=== PATIENT | female | born 1990 | race Caucasian/White ===

== ENCOUNTER 2018-05-14 19:18 | Emergency (ER) | payer MEDICAID ==
[2018-05-14 19:32] VITALS: BP 123/90
[2018-05-14] MEDS ORDERED: PHENERGAN PO ONE (19:51)
[2018-05-14 21:16] LABS: Bacteria,Urine 1+ /HPF (Negative); Bilirubin,Urine NEG (Negative); Blood,Urine SM (Negative); Color,Urine Amber (Yellow); Mucus,Urine 3+ /HPF
[2018-05-14 21:41] LABS: Hematocrit 39.8 % (30.3-42.9); Hemoglobin 13.6 gm/dl (10.1-14.3); Mean Corpuscular HGB Conc 34 % (30-34); Mean Corpuscular Hemoglobin 28 pg (28-32); Mean Corpuscular Volume 83 fl (79-97); Platelet Count 187 K/mm3 (140-440); Red Blood Count 4.79 M/mm3 (3.65-5.03); Red Cell Distribution Width 13.9 % (13.2-15.2)
[2018-05-14 21:48] LABS: BUN/Creatinine Ratio 15; Blood Urea Nitrogen 6 mg/dL (7-17); Calcium 9.5 mg/dL (8.4-10.2); Hemolysis Index 0
--- NOTE | 2018-05-14 22:42 | Emergency Department Report ---
ED N/V/D HPI - General Chief complaint: Nausea/Vomiting/Diarrhea Stated complaint: VOMITING 8 WEEKS PREG Time Seen by Provider: 05/14/18 22:42 Source: patient Mode of arrival: Ambulatory Limitations: No Limitations - Related Data Home Medications Medication Instructions Recorded Confirmed Last Taken Doxylamine Succinate/Vit B6 1 each PO DAILY PRN 18 05/14/18 Unknown [Bonjesta ER 20-20 mg Tablet] Previous Rx's Medication Instructions Recorded Last Taken Type Promethazine [Phenergan] 12.5 mg [place] Q6H PRN #15 supp.rect 05/15/18 Unknown Rx Allergies Allergy/AdvReac Type Severity Reaction Status Date / Time acetaminophen [From Tylenol] Allergy Rash Verified 05/14/18 19:44 NSAIDS (Non-Steroidal Allergy Rash Verified 05/14/18 19:44 Anti-Inflamma ED Review of Systems ROS: Stated complaint: VOMITING 8 WEEKS PREG Other details as noted in HPI ED Past Medical Hx - Past Medical History Previous Medical History?: No - Surgical History Past Surgical History?: No - Social History Smoking Status: Never Smoker Substance Use Type: None - Medications Home Medications: Home Medications Medication Instructions Recorded Confirmed Last Taken Type Doxylamine Succinate/Vit B6 1 each PO DAILY PRN 05/14/18 05/14/18 Unknown History [Bonjesta ER 20-20 mg Tablet] Promethazine [Phenergan] 12.5 mg [place] Q6H PRN #15 supp.rect 05/15/18 Unknown Rx ED Physical Exam - General Limitations: No Limitations ED Course Vital Signs 05/14/18 05/14/18 19:22 19:37 Temperature 99.2 F 99.2 F Pulse Rate 89 84 Respiratory 16 18 Rate Blood Pressure 123/90 123/90 O2 Sat by Pulse 98 100 Oximetry ED Medical Decision Making - Lab Data Result diagrams: 05/14/18 21:18 05/14/18 21:18 Critical care attestation.: If time is entered above; I have spent that time in minutes in the direct care of this critically ill patient, excluding procedure time. ED Disposition Clinical Impression: Hyperemesis gravidarum Disposition: DC-01 TO HOME OR SELFCARE Is pt being admited?: No Does the pt Need Aspirin: No Condition: Stable Instructions: Hyperemesis Gravidarum (ED) Additional Instructions: Please follow up with your custom clothier on Tuesday. Return to the emergency room if her condition worsens. Prescriptions: Promethazine [Phenergan] 12.5 mg VT Q6H PRN #15 supp.rect PRN Reason: Nausea Referrals: PRIMARY CARE, [Primary Care Provider] - 3-5 Days CRYSTAL JURADO MD [Staff Physician] - 3-5 Days Time of Disposition: 01:24
[2018-05-14] MEDS ORDERED: NACL 0.9% 1000 ML 1,000 ML IV ONE (22:59)
[2018-05-14 23:44] LABS: Lipase 28 units/L (13-60)
--- NOTE | 2018-05-15 00:21 | Ultrasound Report ---
FINAL REPORT EXAM: US OB < = 14 WEEKS FETUS HISTORY: abdominal cramps TECHNIQUE: Transabdominal imaging was obtained of the pelvis including Doppler interrogation of the uterus. FINDINGS: The uterus is anteverted measuring 9.3 cm x 6.1 cm x 7.4 cm. Within the uterus is a well-formed gestational sac which contains a pole and yolk sac. The pole corresponds to a 9 week 1 day IUP. The heart rate is 177 BPM. There is no evidence of subchorionic hemorrhage. Free fluid is not seen in the pelvis. The right ovary is normal size contour and echotexture measuring 3.1 cm x 2.2 cm x 3 cm. The left ovary measures 3.7 cm x 3.1 cm x 2.8 cm. Within the left ovary is a functional cyst measuring 2.5 cm in diameter. IMPRESSION: Single viable IUP, 9 weeks 1 day. The heart rate is 177 BPM. 2.5 cm left ovarian cyst.
== END 2018-05-15 01:57 | disposition home or self-care (01) ==
LOC: ED 19:18
DX: O21.0 Mild hyperemesis gravidarum (principal); Z3A.08 8 weeks gestation of pregnancy; Z88.8 Allergy status to other drugs, medicaments and biological substances
CPT/HCPCS: 36415; 76801; 80048; 81001; 83690; 84702; 85027; 87210; 87591; 96360; 99285; J7030; Q0169

== ENCOUNTER 2018-11-19 20:57 | Outpatient (CLI) | payer MEDICAID ==
[2018-11-19] MEDS ORDERED: LACTATED RINGERS 1,000 ML IV ONE (21:26)
[2018-11-19 23:16] VITALS: BP 101/61
--- NOTE | 2018-11-19 23:37 | Progress Note ---
Assessment and Plan A: at 36 weeks gestation. Reactive NST. BPP 8/8. P: Instructed patient to perform daily movement counting. Advised patient to keep her scheduled follow up visit at [facility] this week. Patient sent to ED in wheelchair to be evaluated for palpitations and shortness of breath. Subjective - Subjective Date of service: 11/19/18 Principal diagnosis: at 36 weeks gestation. Interval history: 28 year old at 36 weeks gestation complains of decreased movement starting today. She states she is still getting 10 movements in 2 hours but this is less than she usually gets. Patient denies vaginal bleeding, LOF, contractions, abdominal pain, falls, or abdominal trauma. Patient states she has had heart palpitations and shortness of breath today. She denies cough, fever, chills, malaise. Patient reports: movement normal, no new complaints, no loss of fluid, no vaginal bleeding, no contractions Objective - Vital Signs Vital Signs: Vital Signs - 12hr 11/19/18 11/19/18 11/19/18 21:11 21:26 21:42 Temperature 98.3 F Pulse Rate 82 82 82 Respiratory 18 Rate Blood Pressure 116/71 113/69 106/57 Blood Pressure 116/71 [Left] 11/19/18 11/19/18 11/19/18 21:57 22:27 22:41 Temperature Pulse Rate 78 84 87 Respiratory Rate Blood Pressure 107/59 112/53 108/52 Blood Pressure [Left] 11/19/18 11/19/18 22:56 23:15 Temperature Pulse Rate 80 81 Respiratory Rate Blood Pressure 102/59 101/61 Blood Pressure [Left] - Exam Narrative Exam: BPP 8/8. Normal ARNULFO. Abdomen: Present: normal appearance, soft. Absent: distention, tenderness, guarding, rigidity Uterus: Present: normal, fundal height above umbilicus FHR: category 1 Uterine Contraction Monitor Mode: External Uterine Contraction Pattern: Irregular Extremities: normal
--- NOTE | 2018-11-20 01:01 | Ultrasound Report ---
PROCEDURE: US OB BPP WO NON-STRESS TECHNIQUE: Limited OB ultrasound obtained. HISTORY: well being COMPARISONS: None FINDINGS: Single IUP visualized. Viable fetus with heart rate of 134 bpm. Amniotic fluid index measures 8.6 cm, within normal limits. Biophysical profile 88. IMPRESSION: Biophysical profile is 8/8.. This document is electronically signed by Leola Reese MD., November 20 2018 12:59:09 AM ET
--- NOTE | 2018-11-20 01:06 | Ultrasound Report ---
PROCEDURE: US OB LIMITED TECHNIQUE: Limited OB ultrasound obtained. HISTORY: ARNULFO COMPARISONS: None FINDINGS: Amniotic fluid index measures 8.6 cm. heart rate measures 136 bpm. Fetus in cephalic position. IMPRESSION: Amniotic fluid index measures 8.6 cm, within normal limits.. This document is electronically signed by Leola Reese MD., November 20 2018 01:04:38 AM ET
== END 2018-11-19 23:22 | disposition still patient (30) ==
LOC: TRG 20:57
PROVIDERS: ATTEND Obstetrics & Gynecology
DX: O36.8130 Decreased fetal movements, third trimester, not applicable or unspecified (principal); O26.813 Pregnancy related exhaustion and fatigue, third trimester; Z3A.36 36 weeks gestation of pregnancy
CPT/HCPCS: 59025; 76815; 76819

== ENCOUNTER 2018-11-19 23:27 | Emergency (ER) | payer MEDICAID ==
[2018-11-20 00:32] LABS: Basophils % (Auto) 0.4 % (0.0-1.8); Eosinophils # (Auto) 0.1 K/mm3 (0.0-0.4); Eosinophils % (Auto) 0.9 % (0.0-4.3); Hematocrit 33.1 % (30.3-42.9); Hemoglobin 11.6 gm/dl (10.1-14.3); Lymphocytes # (Auto) 1.9 K/mm3 (1.2-5.4); Lymphocytes % (Auto) 18.3 % (13.4-35.0); Mean Corpuscular HGB Conc 35 % (30-34); Mean Corpuscular Volume 83 fl (79-97); Monocytes # (Auto) 0.5 K/mm3 (0.0-0.8); Monocytes % (Auto) 5.2 % (0.0-7.3); Platelet Count 179 K/mm3 (140-440); Red Blood Count 3.99 M/mm3 (3.65-5.03); Red Cell Distribution Width 17.4 % (13.2-15.2)
[2018-11-20 00:41] LABS: Bilirubin,Urine NEG (Negative); Blood,Urine NEG (Negative); Color,Urine Yellow (Yellow); Protein,Urine <15 mg/dL mg/dL (Negative); Urobilinogen,Urine < 2.0 mg/dL (<2.0)
[2018-11-20 00:42] LABS: INR 1.15 (0.87-1.13)
[2018-11-20 00:43] LABS: Partial Thromboplastin Time 26.4 Sec. (24.2-36.6)
[2018-11-20 00:54] LABS: Alanine Aminotransferase 15 units/L (7-56); Albumin 3.5 g/dL (3.9-5); BUN/Creatinine Ratio 15; Blood Urea Nitrogen 6 mg/dL (7-17); Calcium 9.1 mg/dL (8.4-10.2); Hemolysis Index 7
[2018-11-20 01:22] VITALS: BP 93/50
--- NOTE | 2018-11-20 02:20 | Emergency Department Report ---
HPI - General Chief Complaint: Arrhythmia/Palpitations Time Seen by Provider: 11/20/18 02:15 - HPI HPI: 28-year-old female with a 6 week presents to ED with 1 day history of palpitations, dyspnea, which is now resolved. Patient initially went to the OB floor, where she was cleared from NET DEVELOPER standpoint. Patient denies any chest pain, no fever, chills or night sweats. All other symptoms are now resolved. ED Past Medical Hx - Past Medical History Previous Medical History?: No Hx Hypertension: No Hx Congestive Heart Failure: No Hx Diabetes: No Hx Deep Vein Thrombosis: No Hx Renal Disease: No Hx Sickle Cell Disease: No Hx Seizures: No Hx Asthma: No Hx COPD: No Hx HIV: No - Surgical History Past Surgical History?: No - Social History Smoking Status: Never Smoker Substance Use Type: None - Medications Home Medications: Home Medications Medication Instructions Recorded Confirmed Last Taken Type Doxylamine Succinate/Vit B6 1 each PO DAILY PRN 05/14/18 05/21/18 Unknown Histo ry [Bonjesta ER 20-20 mg Tablet] Promethazine [Phenergan] 12.5 mg [place] Q6H PRN #15 supp.rect 05/15/18 05/21/18 Unknown Rx Doxylamine Succinate/Vit B6 1 each PO QHS #30 tablet. 05/19/18 Unknown Rx [Manjeet Fontaine 10-10 mg Tablet] Doxylamine Succinate/Vit B6 1 each PO QHS #30 tablet. 06/27/18 Unknown Rx [Manjeet Fontaine 10-10 mg Tablet] Famotidine [Pepcid] 20 mg PO BID #60 tablet 06/27/18 Unknown Rx Ondansetron [Zofran Odt] 4 mg PO Q8HR #60 tab.rapdis 06/27/18 Unknown Rx ED Review of Systems ROS: Stated complaint: HEART PALPITATION/SOB Other details as noted in HPI Comment: All other systems reviewed and negative Constitutional: denies: chills, fever Eyes: denies: eye pain, eye discharge, vision change ENT: denies: ear pain, throat pain Respiratory: denies: cough, shortness of breath, wheezing Cardiovascular: palpitations, dyspnea on exertion. denies: chest pain Endocrine: no symptoms reported Gastrointestinal: denies: abdominal pain, nausea, diarrhea Genitourinary: denies: urgency, dysuria, discharge Musculoskeletal: denies: back pain, joint swelling, arthralgia Skin: denies: rash, lesions Neurological: denies: headache, weakness, paresthesias Psychiatric: denies: anxiety, depression Hematological/Lymphatic: denies: easy bleeding, easy bruising Physical Exam - Physical Exam Vital Signs: Vital Signs 11/19/18 11/20/18 11/20/18 23:30 01:21 01:22 Temperature 97.9 F Pulse Rate 84 85 Respiratory 18 19 19 Rate Blood Pressure 105/59 Blood Pressure 93/50 [Left] O2 Sat by Pulse 99 96 96 Oximetry 11/20/18 01:30 Temperature Pulse Rate 89 Respiratory 14 Rate Blood Pressure 93/50 Blood Pressure [Left] O2 Sat by Pulse 98 Oximetry Physical Exam: - General Limitations: No Limitations General appearance: alert, in no apparent distress - Head Head exam: Present: atraumatic, normocephalic - Eye Eye exam: Present: normal appearance - ENT ENT exam: Present: mucous membranes moist - Neck Neck exam: Present: normal inspection - Respiratory Respiratory exam: Present: normal lung sounds bilaterally. Absent: respiratory distress - Cardiovascular Cardiovascular Exam: Present: regular rate, normal rhythm. Absent: systolic murmur, diastolic murmur, rubs, gallop - GI/Abdominal GI/Abdominal exam: Present: soft, normal bowel sounds, gravid abdomen - Extremities Exam Extremities exam: Present: normal inspection - Back Exam Back exam: Present: normal inspection - Neurological Exam Neurological exam: Present: alert, oriented X3 - Psychiatric Psychiatric exam: Present: normal affect, normal mood - Skin Skin exam: Present: warm, dry, intact, normal color. Absent: rash ED Course Vital Signs 11/19/18 11/20/18 11/20/18 23:30 01:21 01:22 Temperature 97.9 F Pulse Rate 84 85 Respiratory 18 19 19 Rate Blood Pressure 105/59 Blood Pressure 93/50 [Left] O2 Sat by Pulse 99 96 96 Oximetry 11/20/18 01:30 Temperature Pulse Rate 89 Respiratory 14 Rate Blood Pressure 93/50 Blood Pressure [Left] O2 Sat by Pulse 98 Oximetry - Reevaluation(s) Reevaluation #1: 11/20/18 03:49 Labs were within normal limits ED Medical Decision Making - Lab Data Result diagrams: 11/19/18 23:58 11/19/18 23:58 - Medical Decision Making 28-year-old female at 36 weeks presented to the ED with palpitations, dyspnea. Heart rate was within normal limit, blood within normal limits, patient advised to follow-up with NET DEVELOPER, and PCP. Currently symptoms free will discharge home. Critical care attestation.: If time is entered above; I have spent that time in minutes in the direct care of this critically ill patient, excluding procedure time. ED Disposition Clinical Impression: Palpitation Disposition: DC-01 TO HOME OR SELFCARE Is pt being admited?: No Does the pt Need Aspirin: No Condition: Stable Instructions: Palpitations (ED) Referrals: PRIMARY CARE, [Referring] - 3-5 Days
== END 2018-11-20 02:40 | disposition home or self-care (01) ==
LOC: ED 23:27
DX: O26.893 Other specified pregnancy related conditions, third trimester (principal); R00.2 Palpitations; R06.00 Dyspnea, unspecified; Z3A.36 36 weeks gestation of pregnancy
CPT/HCPCS: 36415; 80053; 81001; 83735; 85025; 85610; 85730; 93005; 93010; 99283

== ENCOUNTER 2020-06-24 12:50 | Emergency (ER) | payer SELFPAY ==
[2020-06-24 14:52] VITALS: BP 90/55
--- NOTE | 2020-06-24 16:22 | Emergency Department Report ---
ED Laceration HPI - HPI Chief Complaint: Wound/Laceration Stated Complaint: HAND LAC Time Seen by Provider: 06/24/20 15:31 Occurred When: Today Location: Upper Extremity Severity: mild Tetanus Status: Up to Date Laceration Symptoms: Yes Pain, No Foreign Body Sensation, No Numbness, No Weakness Other History: This is a 30-year-old female nontoxic, well nourished in appearance, no acute signs of distress presents to the ED with c/o of left hand laceration that occurred today. Patient stated that she cut herself with a knife accidentally. patient denies decreased sensation or range of motion. Patient stated bleeding is under control. Denies any numbness, tingling, fever, chills, nausea, vomiting, chest pain, shortness of breath, headache or stiff neck. Patient denies any allergies to significant past medical history. Patient stated is UTD tetanus. Patient is 30 weeks and denies any vaginal bleeding or abdominal/pelvic pain. ED Review of Systems ROS: Stated complaint: HAND LAC Other details as noted in HPI Constitutional: denies: chills, fever Eyes: denies: eye pain, eye discharge, vision change ENT: denies: ear pain, throat pain Respiratory: denies: cough, shortness of breath, wheezing Cardiovascular: denies: chest pain, palpitations Endocrine: no symptoms reported Gastrointestinal: denies: abdominal pain, nausea, diarrhea Genitourinary: denies: urgency, dysuria, discharge Musculoskeletal: denies: back pain, joint swelling, arthralgia Skin: denies: rash, lesions Neurological: denies: headache, weakness, paresthesias Psychiatric: denies: anxiety, depression Hematological/Lymphatic: denies: easy bleeding, easy bruising ED Past Medical Hx - Past Medical History Previous Medical History?: No Hx Hypertension: No Hx Congestive Heart Failure: No Hx Diabetes: No Hx Deep Vein Thrombosis: No Hx Renal Disease: No Hx Sickle Cell Disease: No Hx Seizures: No Hx Asthma: No Hx COPD: No Hx HIV: No - Social History Smoking Status: Never Smoker Substance Use Type: None - Medications Home Medications: Home Medications Medication Instructions Recorded Confirmed Last Taken Type Doxylamine Succinate/Vit B6 1 each PO DAILY PRN 05/14/18 05/21/18 Unknown History [Bonjesta ER 20-20 mg Tablet] Promethazine [Phenergan] 12.5 mg [place] Q6H PRN #15 supp.rect 05/15/18 05/21/18 Unknown Rx Doxylamine Succinate/Vit B6 1 each PO QHS #30 tablet. 05/19/18 Unknown Rx [Manjeet Fontaine 10-10 mg Tablet] Doxylamine Succinate/Vit B6 1 each PO QHS #30 tablet. 06/27/18 Unknown Rx [Manjeet Fontaine 10-10 mg Tablet] Famotidine [Pepcid] 20 mg PO BID #60 tablet 06/27/18 Unknown Rx Ondansetron [Zofran Odt] 4 mg PO Q8HR #60 tab.rapdis 06/27/18 Unknown Rx cephALEXin [Keflex] 500 mg PO Q12HR #14 cap 06/24/20 Unknown Rx Laceration Physical Exam - Exam General: Vital signs noted. No distress. Alert and acting appropriately. Wound Length (cm): 1 (left upper thumb area) Laceration Location: Upper Extremity Laceration Exam: Yes Normal Distal CMS, No Foreign Body, No Exposed Tendon, Vessel, or Nerve, No Tendon Injury ED Course Vital Signs 06/24/20 14:51 Temperature 98.0 F Pulse Rate 78 Respiratory 18 Rate Blood Pressure 90/55 O2 Sat by Pulse 97 Oximetry - Reevaluation(s) Reevaluation #1: 06/24/20 16:23 Patient is speaking in full sentences with no signs of distress noted. - Laceration /Wound Repair Left Finger Wound Location: upper extremity (Left upper thumb) Wound Length (cm): 1 Wound's Depth, Shape: superficial Wound Explored: clean Irrigated w/ Saline (ccs): 40 Wound Repaired With: Dermabond Layer Closure?: No Sterile Dressing Applied?: Yes Progress: Under sterile field, I used Betadine to clean the area. I then used 40 mL of normal saline to flush the area. I then used Dermabond to approximate the laceration. I then applied a sterile 4 x 4 with tape. Minimal bleeding noted but is under control. Patient tolerated procedure well with no signs of distress. ED Medical Decision Making - Medical Decision Making This is a 30-year-old female that presents with laceration. Patient is stable and was examined by me. Patient was educated on proper wound care. Patient is discharged with Keflex. Patient was instructed to refer to Follow-up with a primary care doctor in 3-5 days or if symptoms worsen and continue return to emergency room as soon as possible. At time of discharge, the patient does not seem toxic or ill in appearance. No acute signs of distress noted. Patient agrees to discharge treatment plan of care. No further questions noted by the patient. Critical care attestation.: If time is entered above; I have spent that time in minutes in the direct care of this critically ill patient, excluding procedure time. ED Disposition Clinical Impression: Laceration of left hand Qualifiers: Encounter type: initial encounter Foreign body presence: without foreign body Qualified Code(s): S61.412A - Laceration without foreign body of left hand, initial encounter Disposition: TO HOME OR SELFCARE Is pt being admited?: No Does the pt Need Aspirin: No Condition: Stable Instructions: Laceration (ED), Skin Adhesive Care (ED) Additional Instructions: Follow-up with a primary care doctor in 3-5 days or if symptoms worsen and continue return to emergency room as soon as possible. Prescriptions: cephALEXin [Keflex] 500 mg PO Q12HR #14 cap Referrals: SURESH BEAN MD [Primary Care Provider] - 3-5 Days YSABEL LYNCH MD [Staff Physician] - 3-5 Days Forms: Work/School Release Form(ED)
== END 2020-06-24 16:59 | disposition home or self-care (01) ==
LOC: ED 12:50
DX: S61.412A Laceration without foreign body of left hand, initial encounter (principal); Z88.8 Allergy status to other drugs, medicaments and biological substances; Z79.899 Other long term (current) drug therapy; W26.0XXA Contact with knife, initial encounter; Y93.89 Activity, other specified; Y92.89 Other specified places as the place of occurrence of the external cause; Y99.8 Other external cause status